=== PATIENT | female | born 1985 | race Caucasian/White ===

== ENCOUNTER 2017-11-16 09:43 | Day surgery (SDC) | payer OTHER ==
[~2017-11-16 09:43] MED LIST: LIDOCAINE 2% (SDV) 5 ML INJ; SUCCINYLCHOLINE CHLORIDE 100 MG/5 ML SYG IV
[2017-11-16] MEDS ORDERED: SOD CHLORIDE 0.9% 1,000 ML IV (10:00)
[2017-11-16] MEDS ORDERED: CEFAZOLIN 2 GM/50 ML (PMX) 50 ML IVPB (10:00)
[2017-11-16] MEDS ORDERED: FENTAnyl 50 MCG/ML VIAL IV ×2 (12:30)
[2017-11-16] MEDS ORDERED: MEPERIDINE 25 MG INJ IV (12:30)
[2017-11-16] MEDS ORDERED: DIPHENHYDRAMINE 50 MG INJ IV (12:30)
[2017-11-16] MEDS ORDERED: HYDROmorphONE (0.2 MG/ML) 10ML SYG IV (12:30)
[2017-11-16] MEDS ORDERED: ROPIVACAINE 0.5 % 30 ML VIAL (13:19)
[2017-11-16] MEDS ORDERED: SUGAMMADEX SODIUM 200 MG/2 ML VIAL IV (13:19)
[2017-11-16] MEDS ORDERED: FENTAnyl 50 MCG/ML VIAL ×2 (13:19→15:19)
[2017-11-16] MEDS ORDERED: SUCCINYLCHOLINE CHLORIDE 100 MG/5 ML SYG IV (13:21)
[2017-11-16] MEDS ORDERED: HYDROCORTISONE 100 MG INJ (13:28)
[2017-11-16] MEDS: BUPIVACAINE 0.25% (MPF) 30 ML INJ (14:00)
[2017-11-16] MEDS ORDERED: PROPOFOL 20 ML (15:05)
[2017-11-16] MEDS ORDERED: CEFAZOLIN 1 GM INJ (15:05)
[2017-11-16] MEDS ORDERED: ROCURONIUM 50 MG INJ (15:05)
[2017-11-16] MEDS ORDERED: ONDANSETRON 4 MG INJ IV (15:30)
[2017-11-16] MEDS ORDERED: morphine 2 MG INJ IV (15:30)
[2017-11-16] MEDS ORDERED: IBUPROFEN 600 MG TAB PO (15:30)
[2017-11-16] MEDS ORDERED: HYDROCODONE/APAP (5/325) TAB PO (15:30)
[2017-11-16] MEDS ORDERED: KETOROLAC 30 MG INJ IV (15:30)
[2017-11-16] MEDS: HYDROmorphONE (0.2 MG/ML) 10ML SYG IV ×3 (15:42→16:04)
[2017-11-16] MEDS: ONDANSETRON 4 MG INJ IV (15:45)
[2017-11-16] MEDS: METOCLOPRAMIDE 10 MG INJ IV (16:29)
[2017-11-16] MEDS: HYDROCODONE/APAP (5/325) TAB PO (16:29)
== END 2017-11-16 17:07 | disposition home or self-care (01) ==
LOC: SDS 09:43
DX: K81.1 Chronic cholecystitis (principal); M06.9 Rheumatoid arthritis, unspecified; E66.01 Morbid (severe) obesity due to excess calories; Z68.36 Body mass index [BMI] 36.0-36.9, adult
CPT/HCPCS: 47562; 84703; 88304